=== PATIENT | male | born 1995 | race African-American/Black ===

== ENCOUNTER 2018-02-10 13:22 | Emergency (ER) | payer OTHER ==
[~2018-02-10] VITALS: Ht 154.9 cm; Wt 53.5 kg
[2018-02-10 13:30] VITALS: TEMP 98
[2018-02-10 17:00] VITALS: BP 118/58
== END 2018-02-10 17:05 | disposition home or self-care (01) ==
LOC: ED 13:22
DX: R09.89 Other specified symptoms and signs involving the circulatory and respiratory systems (principal)
CPT/HCPCS: 99283; Q9963